=== PATIENT | female | born 1980 | race Caucasian/White ===

== ENCOUNTER 2018-05-16 08:15 | Observation (INO) | payer OTHER ==
[2018-05-16 08:30] VITALS: BMI 33.5
[2018-05-16 09:33] LABS: BASO % 0.4 % (0.0-2.0); EOS # 0.1 K/uL (0.0-0.7); EOS % 1.7 % (0.0-4.0); HEMOGLOBIN 12.6 g/dL (12.0-16.0); LYMPH % 33.6 % (20.0-40.0); MEAN CELL VOLUME 88.8 fl (81.0-99.0); MEAN CORPUSCULAR HEMOGLOBIN 29.7 pg (27.0-31.0); MEAN CORPUSCULAR HGB CONC 33.4 g/dL (33.0-37.0); MEAN PLATELET VOLUME 8.8 fl (7.2-11.7); MONO # 0.5 K/uL (0.0-0.8); MONO % 7.9 % (0.0-10.0); NEUT # 3.4 K/uL (1.8-7.0); NEUT % 56.4 % (50.0-75.0); NRBC % 0.1 % (0.0-0.0); RBC 4.23 Mil/uL (3.80-5.20); RED CELL DISTRIBUTION WIDTH 13.4 % (11.5-14.5)
[2018-05-16 09:40] LABS: BLOOD UREA NITROGEN 8 mg/dl (7-17); CALCIUM 9.2 mg/dL (8.4-10.2); GFR NON-AFRICAN AMERICAN > 60
[2018-05-16 09:41] LABS: PROTHROMBIN TIME 11.8 Seconds (9.8-13.1)
[2018-05-16 09:44] LABS: PARTIAL THROMBOPLASTIN TIME 30.5 Seconds (25.6-37.1)
--- NOTE | 2018-05-16 10:31 | ED PDOC ---
HPI: Female Pain Time Seen by Provider: 05/16/18 08:49 Chief Complaint (Nursing): Female Genitourinary Chief Complaint (Provider): Female Genitourinary History Per: Patient History/Exam Limitations: no limitations Additional Complaint(s): 37 year old female, approximately 12 weeks in , is referred to the [facility] department by her ACCOUNTS ADMINISTRATOR for an evaluation after an ultrasound last week reveled (+) demise. At present, she denies any fever, chills, abdominal pain, urinary symptoms, vaginal bleeding or discharge. PCP: none provided ACCOUNTS ADMINISTRATOR: Dr. Maxx Stahl Past Medical History Reviewed: Historical Data, Nursing Documentation, Vital Signs Vital Signs: Last Vital Signs Temp 98.7 F 05/16/18 08:30 Pulse 90 05/16/18 09:38 Resp 17 05/16/18 09:30 BP 115/71 05/16/18 09:30 Pulse Ox 100 05/16/18 09:30 - Medical History PMH: No Chronic Diseases Denies: Depression, Chronic Kidney Disease - Surgical History Surgical History: - Family History Family History: States: Unknown Family Hx - Immunization History Hx Tetanus Toxoid Vaccination: No Hx Influenza Vaccination: No Hx Pneumococcal Vaccination: No - Home Medications Home Medications: Ambulatory Orders Medication Instructions Recorded No Known Home Med 05/16/18 - Allergies Allergies/Adverse Reactions: Allergies Allergy/AdvReac Type Severity Reaction Status Date / Time No Known Allergies Allergy Verified 09/29/15 15:16 Review of Systems ROS Statement: Except As Marked, All Systems Reviewed And Found Negative Constitutional: Negative for: Fever, Chills Gastrointestinal: Negative for: Abdominal Pain Genitourinary Female: Negative for: Dysuria, Hematuria, Vaginal Discharge, Vaginal Bleeding Physical Exam - Reviewed Nursing Documentation Reviewed: Yes Vital Signs Reviewed: Yes - Physical Exam Appears: Positive for: Well, Non-toxic, No Acute Distress Head Exam: Positive for: ATRAUMATIC, NORMAL INSPECTION, NORMOCEPHALIC Skin: Positive for: Normal Color Eye Exam: Positive for: Normal appearance, EOMI Cardiovascular/Chest: Positive for: Regular Rate, Rhythm Extremity: Positive for: Normal ROM Neurological/Psych: Positive for: Awake, Alert, Normal Tone Neurologic/Psych: Positive for: Alert, Oriented (x3) - Laboratory Results Result Diagrams: 05/16/18 09:15 05/16/18 09:15 Lab Results: PT 11.8 Seconds (9.8-13.1) 05/16/18 09:15 INR 1.0 05/16/18 09:15 APTT 30.5 Seconds (25.6-37.1) 05/16/18 09:15 - ECG O2 Sat by Pulse Oximetry: 100 (RA) Pulse Ox Interpretation: Normal Medical Decision Making Medical Decision Making: Initial Impression: demise Initial Plan: * Labs Time: 912 --Case discussed with Dr. Stahl who is requesting D&C. Patient will be admit [facility] [facility] to medical services. Time: 999 --Labs reviewed: (-) significant clinical abnormality. Scribe Attestation: Documented by Angela Heart, acting as a scribe for Alicja Roche MD. Provider Scribe Attestation: All medical record entries made by the Scribe were at my direction and personally dictated by me. I have reviewed the chart and agree that the record accurately reflects my personal performance of the history, physical exam, medical decision making, and the department course for this patient. I have also personally directed, reviewed, and agree with the discharge instructions and disposition. Disposition - Clinical Impression Clinical Impression: Threatened - Patient ED Disposition Is Patient to be Admitted: Yes Discussed With : Maxx Stahl Doctor Will See Patient In The: ED Counseled Patient/Family Regarding: Studies Performed, Diagnosis - Disposition Disposition Time: :13 Condition: STABLE - Pt Status Changed To: Hospital Disposition Of: SDS- Endo,OR,Cath,IR
--- NOTE | 2018-05-16 10:35 | CP.PCM.HP ---
History of Present Illness - History of Present Illness History of Present Illness: 37yo female dx with Missed Ab by ultrasound. Pt ~12wks by LMP. On sono, CRL 18mm c/w 8 weeks with no FH. Pt without complaints at this time. Denies any bleeding or pain/cramping. Discussed options with patient including expectant management, medical management with misoprostol, and surgical management with D&C. Pt opting for D&C. Discussed the R/B/A of procedure and pt consented Present on Admission - Present on Admission Any Indicators Present on Admission: No History of DVT/PE: No History of Uncontrolled Diabetes: No Urinary Catheter: No Decubitus Ulcer Present: No Past Patient History - Infectious Disease Hx of Infectious Diseases: None - Past Social History Smoking Status: Never Smoked - CARDIAC Hx Cardiac Disorders: No - PULMONARY Hx Respiratory Disorders: No - NEUROLOGICAL Hx Neurological Disorder: No - HEENT Hx HEENT Problems: No - RENAL Hx Chronic Kidney Disease: No - ENDOCRINE/METABOLIC Hx Endocrine Disorders: No - HEMATOLOGICAL/ONCOLOGICAL Hx Blood Disorders: No - INTEGUMENTARY Hx Dermatological Problems: No - MUSCULOSKELETAL/RHEUMATOLOGICAL Hx Musculoskeletal Disorders: No - GASTROINTESTINAL Hx Gastrointestinal Disorders: No - GENITOURINARY/GYNECOLOGICAL Hx Genitourinary Disorders: No - PSYCHIATRIC Hx Depression: No - SURGICAL HISTORY Hx Section: Yes - ANESTHESIA Hx Anesthesia: No Hx Anesthesia Reactions: No Hx Malignant Hyperthermia: No Meds Allergies/Adverse Reactions: Allergies Allergy/AdvReac Type Severity Reaction Status Date / Time No Known Allergies Allergy Verified 09/29/15 15:16 Physical Exam - Constitutional Appears: Well, No Acute Distress - Eye Exam Eye Exam: Normal appearance, PERRL - ENT Exam ENT Exam: Mucous Membranes Moist - Respiratory Exam Respiratory Exam: Clear to Auscultation Bilateral, NORMAL BREATHING PATTERN - Cardiovascular Exam Cardiovascular Exam: REGULAR RHYTHM - GI/Abdominal Exam GI & Abdominal Exam: Soft. absent: Distended, Tenderness - Extremities Exam Extremities exam: Positive for: normal inspection. Negative for: calf t enderness Results - Vital Signs Recent Vital Signs: Last Vital Signs Temp 98.7 F 05/16/18 08:30 Pulse 90 05/16/18 09:38 Resp 17 05/16/18 09:30 BP 115/71 05/16/18 09:30 Pulse Ox 100 05/16/18 10:31 - Labs Result Diagrams: 05/16/18 09:15 05/16/18 09:15 Labs: Laboratory Results - last 24 hr 05/16/18 05/16/18 05/16/18 09:15 09:15 09:15 WBC 6.0 RBC 4.23 Hgb 12.6 Hct 37.6 MCV 88.8 D MCH 29.7 MCHC 33.4 RDW 13.4 Plt Count 295 MPV 8.8 Neut % (Auto) 56.4 Lymph % (Auto) 33.6 Amador % (Auto) 7.9 Eos % (Auto) 1.7 Baso % (Auto) 0.4 Neut # (Auto) 3.4 Lymph # (Auto) 2.0 Amador # (Auto) 0.5 Eos # (Auto) 0.1 Baso # (Auto) 0.0 PT 11.8 INR 1.0 APTT 30.5 Sodium 139 Potassium 4.3 Chloride 105 Carbon Dioxide 25 Anion Gap 13 BUN 8 Creatinine 0.6 L Est GFR ( Amer) > 60 Est GFR (Non-Af Amer) > 60 Random Glucose 95 Calcium 9.2 Blood Type Antibody Screen BBK History Checked 05/16/18 09:31 WBC RBC Hgb Hct MCV MCH MCHC RDW Plt Count MPV Neut % (Auto) Lymph % (Auto) Amador % (Auto) Eos % (Auto) Baso % (Auto) Neut # (Auto) Lymph # (Auto) Amador # (Auto) Eos # (Auto) Baso # (Auto) PT INR APTT Sodium Potassium Chloride Carbon Dioxide Anion Gap BUN Creatinine Est GFR ( Amer) Est GFR (Non-Af Amer) Random Glucose Calcium Blood Type O POSITIVE Antibody Screen Negative BBK History Checked Patient has bt - Imaging and Cardiology US - abdomen Status: Report reviewed by me Assessment & Plan - Assessment and Plan (Free Text) Assessment: Missed Ab at ~8wks GA Plan: Suction D&C Routine postop observation and care - Date & Time Date: 05/16/18 Time: 10:36
[2018-05-16] MEDS ORDERED: Midazolam 2 MG/2 ML VIAL ONE (10:37)
[2018-05-16] MEDS ORDERED: Dexamethasone 4 mg/1 ml ONE (10:37)
[2018-05-16] MEDS ORDERED: Propofol 10 mg/ml Inj (20 ML) ONE (10:37)
[2018-05-16] MEDS ORDERED: Lidocaine 1% 5ml Abboject ONE (10:37)
[2018-05-16] MEDS ORDERED: Oxytocin 10 Units/ml Inj ONE (10:56)
[2018-05-16] MEDS ORDERED: Lactated Ringer's 1,000 ML IV ONE (10:56)
[2018-05-16] MEDS ORDERED: HYDROmorphone 0.5 mg/0.5 ml ISec IVP PRN (11:49)
[2018-05-16] MEDS ORDERED: HYDROmorphone 0.5 mg/0.5 ml ISec ONE (12:00)
[2018-05-16] MEDS ORDERED: Lactated Ringer's 1,000 ML IV SCH (12:00)
[2018-05-16 12:14] VITALS: RESP 18
[2018-05-16 15:43] VITALS: BP 122/78; PULSE 86; TEMP 986; O2SAT 100
--- NOTE | 2018-05-16 18:21 | CARD ---
APPROVED REPORT Date of service: 05/16/2018 EKG Measurement Heart [id number] <Conclusion> Normal sinus rhythm Normal ECG
--- NOTE | 2018-05-17 23:54 | OP ---
PROCEDURE DATE: 05/16/2018 PREOPERATIVE DIAGNOSIS: Missed at approximately eight weeks' gestational age. POSTOPERATIVE DIAGNOSIS: Missed at approximately eight weeks' gestational age. OPERATION PERFORMED: Suction dilation and curettage. SURGEON: Maxx Stahl MD PROFESSOR OF LANGUAGES: None. ANESTHESIOLOGIST: Maxx Medina MD ANESTHESIA: General. COMPLICATIONS: None. DESCRIPTION OF PROCEDURE: The patient was taken to the operating room where general anesthesia was found to be adequate. The patient was prepped and draped in a normal sterile fashion in the dorsal lithotomy position. A weighted speculum was placed at the posterior aspect of the vagina. A Garcias retractor was placed at the anterior surface of the vagina. The cervix was grasped with a single-tooth tenaculum at the anterior surface. The cervix was dilated with Quiroz dilators to a size of 20-Croat[place]. The suction device was placed through the cervix into the uterine cavity, and the suction device was activated. Products of conception were removed from the uterus. Suction device was deactivated and removed from the uterus. The uterine lining was curetted with a sharp curette until a gritty texture noted. The suction device was replaced back into the uterine cavity. Suction device was activated and remaining products of conception seen were removed from the uterus. All instruments were removed from the patient. Both the cervical os and tenaculum site were found to be hemostatic. The patient tolerated the procedure well. All sponge, lap, and needle counts were correct x2. There were no complications. The patient was taken to the recovery room in awake and stable condition. Maxx Stahl MD
== END 2018-05-16 15:48 | disposition home or self-care (01) ==
LOC: H.ER 08:15 → H.ERHOLD 09:13
PROVIDERS: ADMIT Obstetrics & Gynecology; ATTEND Obstetrics & Gynecology
DX: O02.1 Missed abortion (principal)
CPT/HCPCS: 59820; 80048; 81025; 85025; 85610; 85730; 86850; 86900; 88305; 93005; 99285; G0378; J1100; J1170; J1885; J2210; J2250; J2704; J2765; J3010; J7120